=== PATIENT | male | born 2000 | race Caucasian/White ===

== ENCOUNTER 2021-05-27 23:39 | Emergency (ER) | payer OTHER ==
[~2021-05-27] VITALS: Ht 170.2 cm; Wt 79.5 kg
[2021-05-27 23:39] VITALS: BP 141/89
[2021-05-28] MEDS ORDERED: predniSONE 20 MG TAB PO ONE (01:25)
[2021-05-28] MEDS ORDERED: diazePAM 2 MG TAB PO ONE (01:25)
[2021-05-28] MEDS ORDERED: DIAZ2TAB PO (01:42)
[2021-05-28] MEDS ORDERED: PRED20TA PO (01:42)
[2021-05-29] MEDS ORDERED: UNRESOLVED CLARIFICATION ENTRY XX SCH (00:01)
== END 2021-05-28 01:47 | disposition home or self-care (01) ==
LOC: M ED 23:39
DX: H93.13 Tinnitus, bilateral (principal); H83.3X9 Noise effects on inner ear, unspecified ear; H81.4 Vertigo of central origin

== ENCOUNTER 2022-01-29 11:29 | Emergency (ER) | payer OTHER ==
[~2022-01-29] VITALS: Ht 182.9 cm; Wt 77.6 kg
[~2022-01-29 11:29] MED LIST: DIAZ2TAB PO; PRED20TA PO
[2022-01-29 12:09] LABS: BASO # 0.1 10^3/uL (0.0-0.2); BASO % 0.4 % (0.0-1.0); EOS % 0.3 % (0.0-3.0); HEMATOCRIT 44.7 % (42.0-52.0); HEMOGLOBIN 15.2 g/dl (13.5-17.5); LYMPH # 1.4 10^3/uL (1.5-5.0); LYMPH % 10.2 % (24.0-44.0); MEAN CORPUSCULAR HEMOGLOBIN 28.2 pg (27.0-33.0); MEAN CORPUSCULAR VOLUME 82.9 fl (80.0-96.0); MONO % 7.5 % (2.0-8.0); NEUTROPHILS # 11.3 10^3/uL (1.5-8.5); NEUTROPHILS % 81.1 % (36.0-66.0); PLATELET COUNT, AUTOMATED 264 10^3/uL (150-450); RED BLOOD COUNT 5.39 10^6/uL (4.30-6.10); WHITE BLOOD COUNT 13.9 10^3/uL (4.0-10.0)
[2022-01-29] MEDS ORDERED: ONDANSETRON 4MG 2ML VIAL IV ONE (12:20)
[2022-01-29] MEDS ORDERED: ISOVUE-370 76% 100ML VIAL As Ordered ONE (12:20)
[2022-01-29] MEDS ORDERED: NS 1,000 ML IV ONE (12:20)
[2022-01-29] MEDS ORDERED: GASTROGRAFIN SOLUTION 30ML (Q9963) As Ordered ONE (12:21)
[2022-01-29] MEDS: GASTROGRAFIN SOLUTION 30ML PO SCH ×2 (12:37→13:21)
[2022-01-29] MEDS ORDERED: KETOROLAC 30 MG/ML 1ML VIAL IV ONE (12:45)
[2022-01-29 13:18] LABS: ALBUMIN 4.9 GM/DL (3.2-5.2); BILIRUBIN,DIRECT 0.2 MG/DL (0.0-0.2); BILIRUBIN,TOTAL 1.1 MG/DL (0.2-1.0); TOTAL PROTEIN 7.8 GM/DL (6.4-8.2)
[2022-01-29 14:30] LABS: RSV AMPLIFICATION NEGATIVE (NEGATIVE)
[2022-01-29] MEDS ORDERED: ONDA4TAB6 PO (15:09)
[2022-01-29 15:16] VITALS: BP 121/69
== END 2022-01-29 15:20 | disposition home or self-care (01) ==
LOC: M ED 11:29
DX: R10.31 Right lower quadrant pain (principal); Z79.899 Other long term (current) drug therapy
CPT/HCPCS: 36415; 74177; 80047; 80076; 83690; 85025; 87631; 96361; 96374; 96375; 99284; J1885; J2405; Q9967